=== PATIENT | male | born 2005 | race Caucasian/White ===

== ENCOUNTER 2024-06-06 15:46 | Emergency (ER) | payer OTHER, SELFPAY ==
[2024-06-06 15:48] VITALS: BP 121/77
[2024-06-06 16:22] VITALS: BMI 19.3
[2024-06-06 16:26] VITALS: BP 114/69
--- NOTE | 2024-06-06 16:28 | EDRN ---
Ant NDIAYE in to see pt.
--- NOTE | 2024-06-06 16:28 | ED.MUSCINJ ---
HPI-Injury
General
Chief Complaint: Musculo-Skeletal Complaint
Source: patient
Exam Limitations: none
Time Seen by Provider: 06/06/24 16:21
Nursing documentation reviewed up to this point in time: agreed with
History of Present Illness-Injury
Is this injury a work related problem?: No
Initial Injury comments:
Patient states he was walking yesterday and his knee gave out. Complains of pain to knee. Hx of Von Willebrand syndrome. Only treatement given with during surgery of right knee - psuedoaneurysm. Broght to ED by mother for eval
Past History
Past History
ED Past Medical History: Asthma and Other (Von Willebrand's disease)
Social History
Tobacco: Non-smoker
Alcohol: None
Living: with family
Review of Systems
Review of Systems
Allergies reviewed?: Yes
All Other Systems: ROS reviewed and negative except as documented in HPI and ROS
Constitutional: Reports no symptoms
EENT: Reports no symptoms
Respiratory: Reports no symptoms
Cardiac: Reports no symptoms
ABD/GI: Reports no symptoms
: Reports no symptoms
Musculoskeletal: Reports joint pain (pain to left knee)
Skin: Reports no symptoms
Neurological: Reports no symptoms
Psychiatric: Reports no symptoms
Musculoskeletal Injury Exam
Musculoskeletal Injury Exam
Left Knee:
Pain with Movement?: Moderate
Tender to palpation?: Moderate
Soft tissue swelling?: Mild
Joint effusion?: None
Contusion?: None
Hematoma-local bleeding into tissue?: None
Strain- Sprain- Tear (Connective tissue injury)?: Moderate
Crepitus with movement?: No
Joint instability?: No
Malalignment/deformity?: No
Range of motion: Limited
Distal skin color and temperature: normal-warm & good color
Capillary Refill: normal
Normal distal neurovascular exam?: Yes
Peripheral Pulses: posterior tibial (left): 3+ and dorsalis pedis (left): 3+
Phy Exam
General Physical Exam
General Presentation: well appearing and no apparent distress
General age: appears stated age
General Skin: warm and dry
General Habitus: normal
General Mental: alert
Musculoskeletal Exam
Musculoskeletal Exam: neuro vasc intact and other (Pain, mild swelling to left knee.)
Skin Exam
Skin Exam: normal color, warm/dry and no rash
Psychiatric Exam
Psychiatric Exam: normal mood/affect
Injury Course
Orders/Labs/Results
Orders:
Orders
06/06/24 15:50
Knee, Left 4 or More Views [CR Knee - Left 4 Or More View*] Urgent
Comment:
Reason For Exam: pain, swelling
06/06/24 16:27
Jayme Wrap Left-Treatment ONCE
Knee Immobilizer Left-Treatmen ONCE
06/06/24 18:11
Acetaminophen [Tylenol] 650 mg .ROUTE .STK-MED ONE
06/06/24 18:13
Acetaminophen [Tylenol] 650 mg PO NOW STA
06/06/24 18:17
Desmopressin [Ddavp] 18 mcg 0.9% Sodium Chloride 50 ml [Nss] 50 ml IV NOW
*Radiology
Radiology exam reviewed: radiology read reviewed
*Pulse Oximetry
Patient hypoxic: no
*Critical Care Note
Total Time (30-74mins, 75-104mins- exclusive of procedures): Not Applicable
Update Note
Update Note:
Spoke with hemtology at [facility]. Recommend 18mcg DDAVP now, 53 oz fluid restriction x 24 ours. [facility] will reach out to patient/PCP tomorrow.
ED Attending Note
-
Portions of this chart may have been created with voice recognition software.� Occasional wrong word or��sound alike� substitutions may have occurred due to the inherent limitations of voice recognition software.
Discharge Plan
Departure
Patient Disposition: Home (Routine Discharge)
Date of Disposition: 06/06/24
Time of Disposition: 19:42
Patient with high blood pressure during this ER visit?: No
Condition: Good
Covid-19: Not Applicable
Discharge Problem:
Knee sprain
Instructions: How to Use Crutches, Knee Immobilizer (DC), Using Cold for Pain
Prescriptions:
No Action
Multivitamin
1 tab PO DAILY
pantoprazole 40 MG tablet,delayed release (DR/EC)
40 mg PO DAILY Qty: 14 0RF
ondansetron 4 MG tablet,disintegrating
4 mg PO TIDPRN PRN (Reason: nausea/vomiting) Qty: 15 0RF
Referrals:
UNKNOWN - PT DOES,NOT KNOW [Family Provider] -
Activity Restrictions/Additional Instructions:
FLUID RESTRICTION pf 53 oz (1600ml) for the next 24 hours.
Interventions
Interventions:
*Risk Screen - Suicide Last Done: 06/06/24 16:23
*General Assessment Last Done: 06/06/24 16:23
*Neglect/Abuse Screening Last Done: 06/06/24 16:23
*ED COVID-19 Vaccine History Last Done: 06/06/24 16:23
*Nursing Disposition Last Done: 06/06/24 20:12
ED-Musculoskeletal Assessment Last Done: 06/06/24 16:24
Discharge Date and Time
Discharge Date/Time: 06/06/24 20:12
Print Language: BURMESE
[2024-06-06 17:41] VITALS: BP 126/61
--- NOTE | 2024-06-06 17:43 | EDRN ---
Pt states pain is less w/ knee immobilizer.
--- NOTE | 2024-06-06 17:44 | EDRN ---
Pt is requesting tylenol for pain at this time.
--- NOTE | 2024-06-06 17:45 | EDRN ---
Name of exhibits coordinator per mother Justine Almanza DO out of [place] was TT to Ant Suh [employer] as well as pt's request for tylenol.
[2024-06-06] MEDS: TYLENOL 650 MG PO (18:13)
--- NOTE | 2024-06-06 18:16 | EDRN ---
Pharmacy called to send medication at this time.
[2024-06-06] MEDS: DDAVP 54.5 MCG IV (19:07)
[2024-06-06 19:26] VITALS: BP 114/60
== END 2024-06-06 20:12 | disposition home or self-care (01) ==
LOC: EMR 15:46
PROVIDERS: EMERGENCY PHYSICIAN Emergency Medicine
DX: S83.92XA Sprain of unspecified site of left knee, initial encounter (principal); X50.1XXA Overexertion from prolonged static or awkward postures, initial encounter; Y93.01 Activity, walking, marching and hiking; D68.00 Von Willebrand disease, unspecified; J45.909 Unspecified asthma, uncomplicated; I72.8 Aneurysm of other specified arteries; F90.9 Attention-deficit hyperactivity disorder, unspecified type; F41.9 Anxiety disorder, unspecified; Z88.8 Allergy status to other drugs, medicaments and biological substances
CPT/HCPCS: 99284; 96374; 29505; 73564; J2597

== ENCOUNTER → 2024-09-15 13:24 | Outpatient (REF) | payer OTHER, SELFPAY | LOC: RAD 13:24 | PROVIDERS: ATTENDING PHYSICIAN Surgery; FAMILY PHYSICIAN Family Medicine | DX: Z95.828 Presence of other vascular implants and grafts (principal) | CPT/HCPCS: 93922; 93926 ==

== ENCOUNTER → 2024-11-23 15:03 | Outpatient (REF) | payer OTHER, SELFPAY | LOC: HWRAD 15:03 | PROVIDERS: ATTENDING PHYSICIAN Family Medicine | DX: M79.671 Pain in right foot (principal) | CPT/HCPCS: 73630 ==

== ENCOUNTER → 2025-02-25 13:56 | Outpatient (REF) | payer OTHER, SELFPAY | LOC: HWRAD 13:56 | PROVIDERS: ATTENDING PHYSICIAN Family Medicine | DX: M25.50 Pain in unspecified joint (principal) | CPT/HCPCS: 72050; 72110 ==

== ENCOUNTER 2025-07-20 22:33 | Emergency (ER) | payer OTHER, SELFPAY ==
[2025-07-20 22:35] VITALS: BP 120/83
[2025-07-20 22:54] LABS: Urine Character Clear (Clear)
[2025-07-20 22:56] LABS: Hematocrit 47.4 % (39.0-52.0); Hemoglobin 16.6 g/dL (13.0-18.0); Mean Corp Hgb Conc. 35.0 g/dL (33.0-37.0); Mean Corpuscular Volume 86.3 fL (80.0-94.0); Nucleated Red Blood Cells % 0 % (-); Platelet Count 215 10^3/uL (130-400); Red Cell Dist. Width 11.2 % (11.5-14.5)
[2025-07-20 23:18] LABS: ALT (SGPT) 32 U/L (0-50); AST (SGOT) 29 U/L (17-59); Albumin 4.9 g/dl (3.5-5.0); Alkaline Phosphatase 85 U/L (38-126); Blood Urea Nitrogen 10 mg/dl (9-20); Calcium 10.2 mg/dl (8.4-10.2); Carbon Dioxide 32 mmol/L (22-30); Chloride 105 mmol/L (98-107); Glucose 85 mg/dl (70-99); Potassium 4.1 mmol/L (3.5-5.1); Sodium 143 mmol/L (135-145); Total Protein 7.0 g/dl (6.3-8.2); eGFR > 60.00
[2025-07-21 00:32] VITALS: BP 116/67
--- NOTE | 2025-07-21 01:25 | ED.GENMED ---
History of Present Illness
General
Chief Complaint: Flank Pain
Source: patient and family
Exam Limitations: none
Time Seen by Provider: 07/21/25 00:38
Nursing documentation reviewed up to this point in time: agreed with
History of Present Illness
History of Present Illness:
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 No specific
inciting event. Pain specifically worse with movement and positioning. Pain improved with sitting still. Denies any changes in bowel or bladder function. Denies any fevers.
Past History
Past History
ED Past Medical History: Asthma and Other (Von Willebrand's disease)
Social History
Tobacco: Non-smoker
Alcohol: None
Living: with family
Review of Systems
Review of Systems
Allergies reviewed?: Yes
All Other Systems: ROS reviewed and negative except as documented in HPI and ROS
Phy Exam
Physical Exam
Physical Exam:
GENERAL: Alert , in no apparent distress
EYE: pupils equal and reactive
NECK: Supple, no significant adenopathy.
ENT: o/p clr, mmm.
CARDIAC: Regular rate and rhythm .
LUNGS: Clear breath sounds bilaterally, no acute respiratory distress, no wheezes/rales/rhonchi
ABDOMEN: Soft, without focal tenderness, no r/g, no cvat
NEUROLOGICAL: Alert and oriented, no focal neuro deficits
SKIN: Warm and dry, skin intact.
MUSCULOSKELETAL: No edema, well perfused.
PSYCH: Normal and appropriate interaction.
Course
Orders/Labs/Results
Orders:
Orders
07/20/25 22:47
Complete Blood Count/With Diff Urgent
Comprehensive Metabolic Panel Urgent
Urinalysis Reflex To Culture Urgent
Date Specimen was Collected: 07/20/25
Time Specimen was Collected: 22:39
07/21/25 01:24
Acetaminophen [Tylenol] 1,000 mg PO NOW STA
Cyclobenzaprine HCl [Flexeril] 10 mg PO NOW STA
Lumbar Spine, 2 or 3 View [CR Lumbar Spine 2 Or 3 Views] Urgent
Comment:
Reason For Exam: low back pain
07/21/25 01:37
CT Abd/Pel (IV only)-DH only Urgent
Comment:
Reason For Exam: flank pain, hx of pseudoanuerysm
Abnormal Lab Results
07/20/25
22:47
RDW 11.2 L %
(11.5-14.5)
Absolute Monos (auto) 0.7 H 10^3/uL
(0.1-0.6)
Carbon Dioxide 32 H mmol/L
(22-30)
07/20/25 22:47
07/20/25 22:47
Vital Signs
Initial and Last Documented VS:
Initial Vital Signs
Temp Pulse Resp BP Pulse Ox
98.5 F 70 18 120/83 98
07/20/25 22:35 07/20/25 22:35 07/20/25 22:35 07/20/25 22:35 07/20/25 22:35
Last Documented Vital Signs
Temp Pulse Resp BP Pulse Ox
97.5 F 67 15 116/67 100
07/21/25 00:32 07/21/25 00:32 07/21/25 00:32 07/21/25 00:32 07/21/25 01:27
MDM/Problems Addressed
MDM/Problems Addressed:
19-year-old male presenting to the emergency department today with concerns of left-sided flank pain. Seems to be mechanical concerning is reproducible with movement and positioning. Otherwise no additional associated symptoms. Does have a
history of pseudoaneurysm in the past concerning this a CT scan was obtained to ensure there is no vascular abnormality. This was normal. 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 He was notified of these results otherwise stable for outpatient
management. Return precautions given.
*Pulse Oximetry
SaO2: 100
Oxygen Mode of Delivery: Room air
Patient hypoxic: no (100)
*Critical Care Note
Total Time (30-74mins, 75-104mins- exclusive of procedures): Not Applicable
ED Attending Note
-
Portions of this chart may have been created with voice recognition software.� Occasional wrong word or��sound alike� substitutions may have occurred due to the inherent limitations of voice recognition software.
Discharge Plan
Departure
Patient Disposition: Home (Routine Discharge)
Date of Disposition: 07/21/25
Time of Disposition: 03:55
Patient with high blood pressure during this ER visit?: No
Condition: Good
Covid-19: Not Applicable
Discharge Problem:
Back pain
Instructions: Back Pain
Prescriptions:
No Action
Multivitamin
1 tab PO DAILY
pantoprazole 40 MG tablet,delayed release (DR/EC)
40 mg PO DAILY Qty: 14 0RF
ondansetron 4 MG tablet,disintegrating
4 mg PO TIDPRN PRN (Reason: nausea/vomiting) Qty: 15 0RF
Referrals:
Abdirizak Carter DO [Family Provider, General]
Activity Restrictions/Additional Instructions:
You came to the emergency department today with concerns of left-sided back pain. This is likely mechanical pain. Please treat this symptomatically and follow-up closely as an outpatient. Return for any worsening, new or concerning symptoms.
Interventions
Interventions:
*Risk Screen - Suicide Last Done: 07/20/25 22:35
*General Assessment Last Done: 07/20/25 22:35
*ED- Fall Risk Assessment Last Done: 07/20/25 22:35
*ED COVID-19 Vaccine History Last Done: 07/20/25 22:35
*ED Influenza Vaccine History Last Done: 07/20/25 22:35
GO-Gdqald-Wplktmdmes Assessment Last Done: 07/21/25 00:36
ED-Male Genitourinary Assessment Last Done: 07/21/25 00:36
Discharge Date and Time
Print Language: LIBERIAN
[2025-07-21] MEDS: FLEXERIL 10 MG PO (01:57)
[2025-07-21] MEDS: TYLENOL 1000 MG PO (01:57)
[2025-07-21 04:16] VITALS: BP 110/60
== END 2025-07-21 04:17 | disposition home or self-care (01) ==
LOC: EMR 22:33
PROVIDERS: Emergency Medicine; EMERGENCY PHYSICIAN Emergency Medicine; FAMILY PHYSICIAN Family Medicine
DX: M54.9 Dorsalgia, unspecified (principal); R10.9 Unspecified abdominal pain; J45.909 Unspecified asthma, uncomplicated; D68.00 Von Willebrand disease, unspecified; Z86.79 Personal history of other diseases of the circulatory system
CPT/HCPCS: 99284; 72100; 74177; 80053; 81003; 85025; Q9967